=== PATIENT | female | born 1960 | race Caucasian/White ===

== ENCOUNTER → 2016-11-17 | Outpatient (CLI) | payer BC ==
--- NOTE | 2016-11-21 08:44 | MM ---
Reason for exam: screening (asymptomatic). Last mammogram was performed 1 year ago. History: Patient is postmenopausal. Physical Findings: A clinical breast exam by your physician is recommended on an annual basis and results should be correlated with mammographic findings. MG 3D Screening Mammo W/Cad Bilateral CC and MLO view(s) were taken. Prior study comparison: November 12, 2015, bilateral MG 3d screening mammo w/cad. There are scattered fibroglandular densities. No significant changes when compared with prior studies. ASSESSMENT: Benign, BI-RAD 2 RECOMMENDATION: Routine screening mammogram of both breasts in 1 year.
== END | disposition home or self-care (01) ==
LOC: RADMAMWWP 08:52
PROVIDERS: ATTEND Family Medicine
DX: Z12.31 Encounter for screening mammogram for malignant neoplasm of breast (principal)
CPT/HCPCS: 77063; G0202

== ENCOUNTER → 2017-07-11 | Outpatient (CLI) | payer BC | END | disposition home or self-care (01) | LOC: RADECHMAIN 11:50 | PROVIDERS: ATTEND Family Medicine | DX: R00.1 Bradycardia, unspecified (principal); R00.0 Tachycardia, unspecified | CPT/HCPCS: 93225; 93226 ==

== ENCOUNTER → 2017-11-20 | Outpatient (CLI) | payer BC ==
--- NOTE | 2017-11-21 11:48 | MM ---
Reason for exam: screening (asymptomatic). Last mammogram was performed 1 year ago. History: Patient is postmenopausal. Physical Findings: A clinical breast exam by your physician is recommended on an annual basis and results should be correlated with mammographic findings. MG 3D Screening Mammo W/Cad Bilateral CC and MLO view(s) were taken. Prior study comparison: November 17, 2016, bilateral MG 3d screening mammo w/cad. November 12, 2015, bilateral MG 3d screening mammo w/cad. The breast tissue is heterogeneously dense. This may lower the sensitivity of mammography. Focal asymmetry upper outer left breast 6.9cm from nipple. This finding is changed when compared with previous exams. ASSESSMENT: Incomplete: need additional imaging evaluation, BI-RAD 0 RECOMMENDATION: Special view mammogram of the left breast. If lesion persists on supplemental views, image directed ultrasound is recommended. [facility] will attempt to contact patient to return for supplemental views and ultrasound if indicated.
== END | disposition home or self-care (01) ==
LOC: RADMAMWWP 09:01
PROVIDERS: ATTEND Family Medicine
DX: Z12.31 Encounter for screening mammogram for malignant neoplasm of breast (principal)
CPT/HCPCS: 77063; 77067

== ENCOUNTER → 2017-11-22 | Outpatient (CLI) | payer BC ==
--- NOTE | 2017-11-22 08:07 | MM ---
Reason for exam: additional evaluation requested from abnormal screening. Last mammogram was performed less than 1 month ago. History: Patient is postmenopausal. Took hormonal contraceptives beginning at age 22. Physical Findings: Nurse Summary: 1cm nodule in the left breast at 1 o'clock (nurse dw). MG 3D Work Up W/Cad LT Spot compression CC, spot compression MLO, and ML view(s) were taken of the left breast. Prior study comparison: November 20, 2017, bilateral MG 3d screening mammo w/cad. November 17, 2016, bilateral MG 3d screening mammo w/cad. Finding: There is a stable equal density (isodense) mass in the upper outer quadrant of the left breast. These results were verbally communicated with the patient and result sheet given to the patient on 11/22/17. ASSESSMENT: Probably benign, BI-RAD 3 RECOMMENDATION: Follow-up diagnostic mammogram of the left breast in 6 months.
== END | disposition home or self-care (01) ==
LOC: RADMAMWWP 06:50
PROVIDERS: ATTEND Family Medicine
DX: R92.8 Other abnormal and inconclusive findings on diagnostic imaging of breast (principal)
CPT/HCPCS: 77065; G0279

== ENCOUNTER 2017-12-14 12:35 | Emergency (ER) | payer OTHER, BC ==
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
[2017-12-14 13:22] VITALS: RESP 16
[2017-12-14 13:36] LABS: Basophils # (A) 0.1 k/uL (0-0.2); Basophils % (A) 1 %; Eosinophils # (A) 0.3 k/uL (0-0.7); Eosinophils % (A) 3 %; HGB 15.8 gm/dL (11.4-16.0); Lymphocytes # (A) 1.9 k/uL (1.0-4.8); Lymphocytes % (A) 21 %; MCH 28.7 pg (25.0-35.0); MCHC 33.5 g/dL (31.0-37.0); MCV 85.5 fL (80.0-100.0); Mean Platelet Volume 7.2; Monocytes # (A) 0.5 k/uL (0-1.0); Monocytes % (A) 6 %; Neutrophils % (A) 67 %; Platelet Count 257 k/uL (150-450); RDW 12.9 % (11.5-15.5); WBC 8.9 k/uL (3.8-10.6)
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
[2017-12-14 13:47] LABS: Albumin 4.4 g/dL (3.5-5.0); Calcium 9.2 mg/dL (8.4-10.2); Magnesium 1.8 mg/dL (1.6-2.3); Potassium 4.2 mmol/L (3.5-5.1); Total Bilirubin 0.4 mg/dL (0.2-1.3); Total Protein 6.9 g/dL (6.3-8.2)
[2017-12-14 14:00] LABS: Creatine Kinase 54 U/L (30-135)
[2017-12-14 14:14] LABS: Creatine Kinase MB 0.3 ng/mL (0.0-2.4); Troponin I <0.012 ng/mL (0.000-0.034)
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
[2017-12-14 15:15] VITALS: BP 128/87; PULSE 80; TEMP 97.9
== END 2017-12-14 15:13 | disposition home or self-care (01) ==
LOC: EC 12:35
DX: S20.219A Contusion of unspecified front wall of thorax, initial encounter (principal); S60.221A Contusion of right hand, initial encounter; S80.11XA Contusion of right lower leg, initial encounter; E07.9 Disorder of thyroid, unspecified; Z88.0 Allergy status to penicillin; Z79.82 Long term (current) use of aspirin; Z79.899 Other long term (current) drug therapy; V49.40XA Driver injured in collision with unspecified motor vehicles in traffic accident, initial encounter; Y92.410 Unspecified street and highway as the place of occurrence of the external cause; W22.11XA Striking against or struck by driver side automobile airbag, initial encounter
CPT/HCPCS: 36415; 71046; 80053; 82550; 82553; 83735; 84484; 85025; 93005; 99284

== ENCOUNTER → 2018-04-12 | Outpatient (CLI) | payer BC ==
--- NOTE | 2018-04-12 10:55 | MM ---
Reason for exam: clinical finding. Last mammogram was performed 5 months ago. History: Patient is postmenopausal. Took hormonal contraceptives beginning at age 22. Physical Findings: Nurse did not find any significant physical abnormalities on exam. MG 3D Diag Mammo W/Cad LT CC, MLO, and ML view(s) were taken of the left breast. Prior study comparison: November 22, 2017, left breast MG 3d work up w/cad LT. November 20, 2017, bilateral MG 3d screening mammo w/cad. There are scattered fibroglandular densities. Asymmetric breast tissue left upper outer quadrant, stable. There is no discrete abnormality. These results were verbally communicated with the patient and result sheet given to the patient on 04/12/18. ASSESSMENT: Benign, BI-RAD 2 RECOMMENDATION: Return to routine screening mammogram schedule for both breasts. Back on schedule.
== END | disposition home or self-care (01) ==
LOC: RADMAMWWP 07:31
PROVIDERS: ATTEND Family Medicine
DX: R92.8 Other abnormal and inconclusive findings on diagnostic imaging of breast (principal)
CPT/HCPCS: 77061; 77065

== ENCOUNTER → 2018-07-18 | Outpatient (CLI) | payer BC ==
--- NOTE | 2018-07-18 11:36 | BD ---
EXAMINATION TYPE: Axial Bone Density DATE OF EXAM: 07/18/2018 COMPARISON: NONE CLINICAL HISTORY: Osteopenia per order. Height: 5 FT 2 IN Weight: 133 FRAX RISK QUESTIONS: History of Fracture in Adulthood: YES Secondary Osteoporosis: RISK FACTORS HISTORY OF: Active: YES Postmenopausal woman: PART HYST AGE 42 MEDICATIONS: Thyroid Medications: YES Which medication: LEVOTHYROXINE How Long: APROX 25 YRS Additional Medications: PROZAC, METOPROLOL, LEVOTHYROXINE Additional History: EXAM MEASUREMENTS: Bone mineral densitometry was performed using the [employer] System. Bone mineral density as measured about the Lumbar spine is: ----- L1-L4(G/cm2): 1.001 T Score Values are as follows: ----- L2: -1.7 ----- L3: -1.6 ----- L4: -1.4 ----- L1-L4: -1.5 BASELINE Bone mineral density about the R hip (g/cm2): 0.862 Bone mineral density about the L hip (g/cm2): 0.883 T Score values are as follows: -----R Neck: -1.3 -----L Neck: -1.1 -----R Total: -1.0 -----L Total: -0.7 BASELINE IMPRESSION: Osteopenia (T Score between -2.5 and -1) in the low back and both hips is confirmed. There is slightly increased risk of fracture and the patient may be considered for treatment. Re-Screen 2-5 years. NOTE: T-SCORE=SD OF THE YOUNG ADULT MEAN.
== END ==
LOC: RADBDWWP 09:03
DX: M85.851 Other specified disorders of bone density and structure, right thigh (principal); M85.852 Other specified disorders of bone density and structure, left thigh; M85.88 Other specified disorders of bone density and structure, other site
CPT/HCPCS: 77080

== ENCOUNTER → 2018-11-21 | Outpatient (CLI) | payer BC ==
--- NOTE | 2018-11-22 10:28 | MM ---
Reason for exam: screening (asymptomatic). Last mammogram was performed 7 months ago. History: Patient is postmenopausal. Took hormonal contraceptives beginning at age 22. Physical Findings: A clinical breast exam by your physician is recommended on an annual basis and results should be correlated with mammographic findings. MG 3D Screening Mammo W/Cad Bilateral CC and MLO view(s) were taken. Prior study comparison: April 12, 2018, left breast MG 3d diag mammo w/cad LT. November 22, 2017, left breast MG 3d work up w/cad LT. There are scattered fibroglandular densities. Finding: There is an equal density (isodense), partially obscured round mass in the upper outer quadrant, middle position of the left breast. New finding since April 12, 2018 and November 22, 2017. ASSESSMENT: Incomplete: need additional imaging evaluation, BI-RAD 0 RECOMMENDATION: Ultrasound of the left breast. [facility] will attempt to contact patient to return for ultrasound.
== END | disposition home or self-care (01) ==
LOC: RADMAMWWP 06:50
PROVIDERS: ATTEND Family Medicine
DX: Z12.31 Encounter for screening mammogram for malignant neoplasm of breast (principal)
CPT/HCPCS: 77063; 77067

== ENCOUNTER → 2018-11-27 | Outpatient (CLI) | payer BC ==
--- NOTE | 2018-11-27 11:59 | USB ---
Reason for exam: clinical finding. History: Patient is postmenopausal. Took hormonal contraceptives beginning at age 22. Indicated problem(s): palpable abnormality in the left breast. Physical Findings: Nurse Summary: 1cm movable nodule (nurse dw). US Breast Workup Limited LT Left limited breast ultrasound including focal area of concern, retroareolar and axilla demonstrates no cystic or solid lesion seen. Dense tissue focally appears to correlate with the mammographic finding. Spot compression views will ensure no persistent mammographic abnormality. These results were verbally communicated with the patient and result sheet given to the patient on 11/27/18. ASSESSMENT: Incomplete: need additional imaging evaluation, BI-RAD 0 RECOMMENDATION: Follow-up diagnostic mammogram of the left breast. (spot views)
--- NOTE | 2018-11-27 12:03 | MM ---
Reason for exam: additional evaluation requested from abnormal screening. Last mammogram was performed less than 1 month ago. History: Patient is postmenopausal. Took hormonal contraceptives beginning at age 22. MG 3D Work Up W/Cad LT CC and MLO view(s) were taken of the left breast. Prior study comparison: November 21, 2018, bilateral MG 3d screening mammo w/cad. April 12, 2018, left breast MG 3d diag mammo w/cad LT. The breast tissue is heterogeneously dense. This may lower the sensitivity of mammography. There is a 4mm rounded mass on 3D spot view 41/ and MLO /61 corresponding to the palpable. These results were verbally communicated with the patient and result sheet given to the patient on 11/27/18. ASSESSMENT: Suspicious, BI-RAD 4 RECOMMENDATION: Stereotactic core biopsy of the left breast. Called Dr. Vidales with mammographic findings and has scheduled an appointment for the patient for 12/06/[address] Cain. Biopsy scheduled for 12/18/18 at 8:00. PRELIMINARY REPORT CALLED AND FAXED TO DR. CAIN ON 11/27/18.
== END | disposition home or self-care (01) ==
LOC: RADUSWWP 07:43
PROVIDERS: ATTEND Family Medicine
DX: R92.8 Other abnormal and inconclusive findings on diagnostic imaging of breast (principal)
CPT/HCPCS: 77061; 77065

== ENCOUNTER → 2018-12-06 | Outpatient (CLI) | payer BC ==
[2018-12-06 15:54] VITALS: BP 126/80; PULSE 78; RESP 16; TEMP 97.7; BMI 23.8
--- NOTE | 2018-12-06 16:45 | P.GSHP ---
History of Present Illness H&P Date: 12/06/18 Chief Complaint: Abnormal mammogram and ultrasound Mary is a 58-year-old white female who underwent a routine screening mammogram on [id number]. This revealed a round mass in the upper outer quadrant middle position of the left breast. She subsequently underwent [place] [address]. This revealed a 4 mm rounded mass on 3-D corresponding to an area which the nurse was able to feel in that area. The patient herself did not feel anything of concern in the breast. The ultrasound did not show any specific lesions of concern. The patient denies any nipple discharge or skin changes. She has no history of any trauma to her breast. She drinks about 3 cups of coffee/day. She does not drink any tea or soda. She eats a small amount of dark chocolate every day. She does not smoke and is not exposed to secondhand smoke. The patient is postmenopausal, and she does not take any hormones. Family history: mother: oral cancer patient: basal cell cancer Hormonal History: menarche: 14 : , first at 27, breast fed: no menopause: hysterectomy at 47 done at time of bladder suspencion BCP: 10 years horomes: none Past surgical history: 1. Hysterectomy with bladder suspension 2. Tubes in her ears 3. Tonsils and adenoids Past medical history: 1. hypothyroid 2. tachy takes metoprolal Social history: Smoke: Negative alcohol: Occasional Drugs: Negative - Constitutional Constitutional: Denies chills, Denies fever - EENT Eyes: denies blurred vision, denies pain Ears: deny: decreased hearing, tinnitus Ears, nose, mouth and throat: Denies headache, Denies sore throat - Breasts Breasts: bilateral: as per HPI - Cardiovascular Comment: tachy high cholesterol Cardiovascular: Denies chest pain, Denies shortness of breath - Respiratory Respiratory: Denies cough, Denies 7 - Gastrointestinal Gastrointestinal: Denies abdominal pain, Denies diarrhea, Denies nausea, Denies vomiting - Genitourinary (Female) Genitourinary: Denies dysuria, Denies hematuria - Menstruation Menstruation: Reports post hysterectomy - Musculoskeletal Musculoskeletal: Denies myalgias - Integumentary Comment: basal cell cancer - Neurological Neurological: Denies numbness, Denies weakness - Psychiatric Psychiatric: Reports anxiety, Denies depression - Endocrine Endocrine: Denies fatigue, Denies weight change - Hematologic/Lymphatic Comment: Factor V clotting abnormality, clots takes aspirin - Allergic/Immunologic Allergic/Immunologic: Reports seasonal allergies Past Medical History Past Medical History: Hyperlipidemia, Supraventricular Tachycardia (SVT), Thyroid Disorder History of Any Multi-Drug Resistant Organisms: None Reported Past Surgical History: Adenoidectomy, Hysterectomy, Tonsillectomy Past Psychological History: Anxiety Smoking Status: Never smoker Past Alcohol Use History: Occasional Past Drug Use History: None Reported Medications and Allergies Home Medications Medication Instructions Recorded Confirmed Type Aspirin 81 mg PO DAILY 09/15/14 12/06/18 History FLUoxetine HCL [PROzac] 20 mg PO DAILY 09/15/14 12/06/18 History Levothyroxine Sodium [Synthroid] 88 mcg PO DAILY 09/15/14 12/06/18 History Mirtazapine [Remeron] 15 mg PO HS 09/15/14 12/06/18 History Cholecalciferol [Vitamin D3] 1,000 unit PO DAILY 07/03/17 12/06/18 History clonazePAM [KlonoPIN] 0.25 mg PO DAILY PRN 07/03/17 12/06/18 History Ibuprofen 800 mg PO Q6HR PRN #20 tablet 12/14/17 12/06/18 Rx Metoprolol Succinate (ER) [Toprol 25 mg PO DAILY 11/29/18 12/06/18 History XL] Pravastatin Sodium [Pravachol] 30 mg PO HS 11/29/18 12/06/18 History Allergies Allergy/AdvReac Type Severity Reaction Status Date / Time Penicillins Allergy Vomiting Verified 11/29/18 10:58 Surgical - Exam Vital Signs Temp Pulse Resp BP Pulse Ox 97.7 F 78 16 126/80 97 12/06/18 15:50 12/06/18 15:50 12/06/18 15:50 12/06/18 15:50 12/06/18 15:50 BMI 23.8 - General well developed, well nourished, no distress - Eyes normal ocular movement - ENT no hearing loss, no congestion - Neck no masses, trachea midline - Respiratory normal expansion, normal respiratory effort, clear to auscultation - Cardiovascular Rhythm: regular Heart Sounds: normal: S1, S2 - Abdomen Abdomen: soft, non tender, no guarding, no rigid, no rebound - Integumentary no rash, no abnormal pigmentation - Neurologic no disoriented, no combative - Musculoskeletal normal gait, normal posture - Psychiatric oriented to time, oriented to person, oriented to place, speech is normal, memory intact breast exam: Right breast: Multi-positional exam no dominant masses or nodules of concern, fibrocystic change Right axilla: No adenopathy of concern Left breast: Multiple positional exam no dominant masses or nodules of concern Left axilla: No adenopathy of concern Results Mammogram and ultrasound report reviewed Assessment and Plan Assessment: Impression: 1. Mammographic abnormality left breast 2. Fibrocystic breast changes 3. Personal history of basal cell carcinoma the skin 4. Family history of cancer/mother with oral cancer 5. Supraventricular tachycardia 6. High cholesterol 7. Anxiety 8. Factor V clotting abnormality patient on aspirin We discussed the findings on mammogram and ultrasound and the recommendation to undergo a stero tactic core biopsy. The patient understands. We will talk with primary care to determine if she can stop her aspirin prior to the procedure. Plan: 1. Discuss with primary care if patient can stop her aspirin prior to his core biopsy of the left breast 2. Stereotactic core biopsy of the left breast 3. Medical management of medical conditions CC: Dr. Vidales, Laura Richardson
== END ==
LOC: WWCWWP 15:24
PROVIDERS: ATTEND Surgery
DX: Z53.9 Procedure and treatment not carried out, unspecified reason (principal)

== ENCOUNTER → 2018-12-18 | Day surgery (SDC) | payer BC ==
[2018-12-18 07:19] VITALS: RESP 16; BMI 23.8
[2018-12-18 09:05] VITALS: BP 110/71; PULSE 64; TEMP 98.2
--- NOTE | 2018-12-18 09:47 | MM ---
EXAMINATION TYPE: MG stereo VAD BX LT DATE OF EXAM: 12/18/2018 COMPARISON: NONE CLINICAL HISTORY: Left breast 3 mm upper outer quadrant middle depth mass with no sonographic correlate. TECHNIQUE: Stereotactic guided core biopsy of the left breast. FINDINGS: The procedure of stereotactic guided core biopsy was explained to the patient. Benefits, alternatives, and risks were discussed. An informed consent was then obtained. Preprocedural timeout was performed. Preprocedural imaging on the stereotactic images demonstrate 2 adjacent low-density 3 mm and 2 mm masses. The inferior margin of the larger mass was biopsied as below in attempt also sample a portion of the 2 mm mass. The shortness pathway for biopsy was chosen. Shortness pathway was CC from above approach. I performed the localization, then surgeon, Dr. Ramin Gallardo performed the remainder of the procedure. A vacuum assisted biopsy gun was used to obtain multiple core samples. T shaped biopsy marker was placed. The patient tolerated the procedure well without any immediate complication. The patient was kept in the radiology department for short stay after the procedure and then discharged home in stable condition. Post biopsy mammogram shows the biopsy marker to appear in satisfactory position relative to the targeted area of concern on the preprocedure images. IMPRESSION: SUCCESSFUL, UNCOMPLICATED STEREOTACTIC GUIDED CORE BIOPSY OF AREA OF CONCERN IN THE LEFT BREAST, FULL PATHOLOGY RESULTS TO FOLLOW. LOW INDEX OF SUSPICION AT THE TIME OF BIOPSY. Pathology Results: Benign LEFT BREAST, STEREOTACTIC CORE BIOPSY: Benign breast with fibrocystic changes including fibrosis and small cysts. Recommendation Follow up mammogram of the left breast in 6 months. [facility]
--- NOTE | 2018-12-18 11:50 | P.OP ---
Date of Procedure: 12/18/18 Preoperative Diagnosis: Mammographic abnormality left breast Postoperative Diagnosis: same Procedure(s) Performed: Left breast stereotactic core biopsy Anesthesia: local Surgeon: Bernadette Cain Estimated Blood Loss (ml): 0 Pathology: other (Breast tissue) Condition: stable Disposition: same day Indications for Procedure: 4 mm rounded density in 3 spot view corresponding to probable change in the left breast in the midportion of the breast Operative Findings: Dense breast tissue Description of Procedure: The patient is a 58-year-old white female who on a mammogram was noted to have an area of increased nodular density in the left breast. It was recommended she undergo stereotactic core biopsy. This and benefits of the procedure were discussed with the patient and she wished to proceed. The patient was taken to the stereotactic core and positioned on the lower had table. A CC from above approach was utilized to access the lesion. A compressed air pile driver operator film was obtained and the lesion was identified. The breast was prepped using Betadine. 20 mL of 1% lidocaine was used to anesthetize the area of concern. A 90 vacuum-assisted core rotating biopsy needle was driven to the correct coordinates after the lesion had been targeted. A prefire film was obtained and the needle was noted to be in the correct location. This was fired and post-fire film confirmed that the specimen was not radiographs secondary to the fact we were not doing this for microcalcifications. A secure marked top had clip was left in place. Radiograph confirmed this was in the correct location. The patient tolerated the procedure with no complications. The patient will follow-up Dr. Faustin next week. The specimen was sent to pathology.
== END | disposition home or self-care (01) ==
LOC: RADMAMWWP 07:05
PROVIDERS: ATTEND Surgery
DX: N60.32 Fibrosclerosis of left breast (principal); N60.02 Solitary cyst of left breast
CPT/HCPCS: 88305; 19081; A4648; J2001

== ENCOUNTER → 2018-12-28 | Outpatient (CLI) | payer BC ==
[2018-12-28 10:36] VITALS: BP 109/71; PULSE 75; RESP 16; TEMP 98.1; BMI 23.8
--- NOTE | 2018-12-28 10:45 | P.PN ---
Subjective Progress Note Date: 12/28/18 Mary is a 58-year-old white female status post left breast stereotactic core biopsy and 520 119. She is not getting any complaints postprocedure. Pathology revealed benign breast with fibrocystic changes including fibrosis and small cyst. I reviewed the radiographs with radiology to assure that we biopsied the correct area. They do feel that we did sample the area of concern. I discussed this with the patient. Objective - Vital Signs Vital signs: Vital Signs Temp 98.1 F 12/28/18 10:30 Pulse 75 12/28/18 10:30 Resp 16 12/28/18 10:30 BP 109/71 12/28/18 10:30 Pulse Ox 97 12/28/18 10:30 Intake & Output 12/27/18 12/28/18 12/28/18 18:59 06:59 18:59 Weight 58.967 kg - Constitutional General appearance: Present: average body habitus - EENT Eyes: Present: EOMI ENT: Present: hearing grossly normal - Respiratory Respiratory: bilateral: CTA - Cardiovascular Rhythm: regular Heart sounds: normal: S1, S2 - Integumentary Integumentary: Present: normal turgor - Musculoskeletal Musculoskeletal: Present: gait normal - Psychiatric Psychiatric: Present: A&O x's 3, appropriate affect - Additional findings Additional findings: Left breast site of biopsy clean and dry no evidence of any ecchymosis or hematoma or infection Assessment and Plan Assessment: Impression: 1. Patient status post left breast retracted core biopsy results benign Plan: 1. Follow-up with Dr. Faustin in 6 months with repeat left breast diagnostic mammogram 2. Patient has any concerns she can follow sooner CC: Dr. Vidales, CC: Laura Richardson at [facility]
== END ==
LOC: WWCWWP 10:17
PROVIDERS: ATTEND Surgery
DX: Z53.9 Procedure and treatment not carried out, unspecified reason (principal)

== ENCOUNTER → 2019-03-29 | Outpatient (CLI) | payer BC ==
[2019-03-29 14:40] LABS: Appearance,Urine Clear (Clear); Bilirubin,Urine Negative (Negative); Blood,Urine Negative (Negative); Color,Urine Light Yellow; Glucose,Urine (UA) Negative (Negative); Ketones,Urine Negative (Negative); Leukocyte Esterase,Urine Trace (Negative); Mucus,Urine Rare /hpf; Nitrite,Urine Negative (Negative); PH, Urine 5.5 (5.0-8.0); Protein,Urine Negative (Negative); RBC,Urine <1 /hpf (0-5); Specific Gravity,Urine 1.008 (1.001-1.035); Squamous Epithelial Cell,Urine <1 /hpf (0-4); Urobilinogen,Urine <2.0 mg/dL (<2.0); WBC,Urine <1 /hpf (0-5)
--- NOTE | 2019-03-29 17:25 | US ---
EXAMINATION TYPE: US kidneys/renal and bladder DATE OF EXAM: 03/29/2019 COMPARISON: NONE CLINICAL HISTORY: 58-year-old female R31.9 Hematuria, unspecified,N18.9. No pain, abnormal labs TECHNIQUE: Multiple sonographic images of the kidneys and bladder are obtained. FINDINGS: EXAM MEASUREMENTS: Right Kidney: 9.5 x 4.0 x 4.2 cm Left Kidney: 9.5 x 4.1 x 4.2 cm No hydronephrosis on either side. Bladder: Underdistention limits its evaluation. Bilateral Jets not seen IMPRESSION: No hydronephrosis. Under distention of the bladder limits its evaluation.
== END | disposition home or self-care (01) ==
LOC: RADUSWWP 12:39
PROVIDERS: ATTEND Urology
DX: N18.9 Chronic kidney disease, unspecified (principal); R31.29 Other microscopic hematuria
CPT/HCPCS: 76770; 81001; 82565; 84520

== ENCOUNTER → 2019-06-04 | Outpatient (CLI) | payer BC ==
--- NOTE | 2019-06-04 13:25 | MM ---
Reason for exam: follow-up at short interval from prior study. Last mammogram was performed 6 months ago. History: Patient is postmenopausal and history of other cancer. Benign MG stereo VAD BX LT of the left breast, December 18, 2018. Took hormonal contraceptives beginning at age 22. Physical Findings: Nurse did not find any significant physical abnormalities on exam. MG 3D Diag Mammo W/Cad LT CC and MLO view(s) were taken of the left breast. Prior study comparison: November 27, 2018, left breast MG 3d work up w/cad LT. November 21, 2018, bilateral MG 3d screening mammo w/cad. There are scattered fibroglandular densities. Previous mammotome biopsy in the left breast. There is no discrete abnormality. These results were verbally communicated with the patient and result sheet given to the patient on 06/04/19. ASSESSMENT: Benign, BI-RAD 2 RECOMMENDATION: Return to routine screening mammogram schedule for both breasts.
== END | disposition home or self-care (01) ==
LOC: RADMAMWWP 12:49
PROVIDERS: ATTEND Surgery
DX: R92.8 Other abnormal and inconclusive findings on diagnostic imaging of breast (principal)
CPT/HCPCS: 77061; 77065

== ENCOUNTER → 2019-07-12 | Outpatient (CLI) | payer BC ==
[2019-07-12 15:18] VITALS: BP 116/77; PULSE 60; RESP 18; TEMP 97.6
--- NOTE | 2019-07-12 15:29 | P.PN ---
Subjective Progress Note Date: 07/12/19 Principal diagnosis: Mary is a 58 year old white female status post a stero biopsy of the left breast on 12-18-18. ALLERGY revealed benign breast with fibrocystic changes including fibrosis and small cysts. She had a repeat left breast mammogram for 6 month follow-up performed on. This was felt to be benign BIRADS 2. Routine screening of both breast in 6 months recommended. The patient does not complain of anything in her breast at this time. Patient is not noticing any masses lumps or nodules in the breast. She is not complaining of any pain in her breasts. No history of any recent trauma or infection in the breast. The patient has decreased her caffeine intake from 3 cups of coffee per day however she is status post several drinks some. She eats dark chocolate every day. She does not smoke and is not exposed to secondhand smoke. Family History: mother; oral cancer patient: basal cell cancer, left arm surgical history: 1. Hysterectomy with bladder suspension 2. Tubes in ears 2. Tonsils and adenoids Medical history: 1. Hypothyroid 2. Tachycardia and takes metoprolol Social History: smoke: none alcohol: occasional drugs: none ROS: constitutional: none HEENT: none heart: tachy resp: none GI: none :post hysterectomy, done willllh a bladder suspension Skeletal: Negative Psychiatric: Negative Neurologic: Negative Hematologic: Factor V clotting abnormality, takes aspirin Allergies: PCN Objective - Vital Signs Vital signs: Intake & Output 07/11/19 07/12/19 07/12/19 18:59 06:59 18:59 Weight 59.874 kg - Exam BMI 24.1 - Constitutional General appearance: Present: average body habitus - EENT Eyes: Present: EOMI ENT: Present: hearing grossly normal - Neck Neck: Present: normal ROM - Respiratory Respiratory: bilateral: CTA - Cardiovascular Rhythm: regular Heart sounds: normal: S1, S2 - Gastrointestinal General gastrointestinal: Present: normal bowel sounds, soft - Integumentary Integumentary: Present: normal turgor - Musculoskeletal Musculoskeletal: Present: gait normal - Psychiatric Psychiatric: Present: A&O x's 3, appropriate affect, intact judgment & insight - Additional findings Additional findings: examination: Right breast: Multiple positional exam no dominant masses or nodules of concern, fibrocystic changes Right axilla: No adenopathy of concern Left breast: Multiple positional exam fibrocystic changes no dominant mass or nodules of concern Left axilla: No adenopathy of concern Assessment and Plan Assessment: Impression: 1. Repeat left breast mammogram 6 months from stereotactic core biopsy benign BIRADS 2 2. Fibrocystic breast changes 3. Factor V clotting abnormality Plan: 1. Bilateral mammogram in 6 months with physician exam at that time Abdomen discussed this with the patient she is going to have her primary care physician with a mammogram and will follow up with him. She has any questions or abnormalities were more than happy to see her again. Cc: Dr. Castro Encounter 15 minutes, > 50% planning and counselling Time with Patient: Less than 30
== END | disposition home or self-care (01) ==
LOC: WWCWWP 13:54
PROVIDERS: ATTEND Surgery
DX: Z53.9 Procedure and treatment not carried out, unspecified reason (principal)

== ENCOUNTER → 2019-07-12 | Outpatient (CLI) | payer BC ==
--- NOTE | 2019-07-12 15:21 | BD ---
EXAMINATION TYPE: Axial Bone Density DATE OF EXAM: 07/12/2019 COMPARISON: NONE CLINICAL HISTORY: M 81.0 Height: 61.5 IN Weight: 133 LBS FRAX RISK QUESTIONS: History of Fracture in Adulthood: TOES AGE 52 Secondary Osteoporosis: 3. Menopause before 45: PARTIAL HYST AGE 47 RISK FACTORS HISTORY OF: Active: YES Diet low in dairy products/other sources of calcium: YES Postmenopausal woman: PART HYST AGE 47 Take estrogen and/or progesterone medications: NOT NOW How long: TOOK CONTROL FOR 15 YEARS MEDICATIONS: Thyroid Medications: YES Which medication: Levothyroxine How Lon+ YEARS Osteoporosis Medications: NOT NOW Which medication: Fosamax How Long: TOOK FOR 2 YEARS IN HER 40's Additional Medications: CALCIUM, VIT D, LEVOTHYROXINE, PROZAC, METOPROLOL, CHOLESTEROL MEDS, MIRTAZAP RINE, EXAM MEASUREMENTS: Bone mineral densitometry was performed using the [employer] System. Bone mineral density as measured about the Lumbar spine is: ----- L1-L4(G/cm2): 0.996 T Score Values are as follows: ----- L2: -1.6 ----- L3: -1.6 ----- L4: -1.2 ----- L1-L4: -1.5 Bone mineral density BASELINE Bone mineral density about the R hip (g/cm2): 0.851 Bone mineral density about the L hip (g/cm2): 0.885 T Score values are as follows: -----R Neck: -1.3 -----L Neck: -1.1 -----R Total: -1.1 -----L Total: -0.7 Bone mineral density BASELINE IMPRESSION: Osteopenia (T Score between -2.5 and -1). There is slightly increased risk of fracture and the patient may be considered for treatment. Re-Screen 2-5 years. NOTE: T-SCORE=SD OF THE YOUNG ADULT MEAN.
== END | disposition home or self-care (01) ==
LOC: RADBDWWP 13:50
PROVIDERS: ATTEND Family Medicine
DX: M85.89 Other specified disorders of bone density and structure, multiple sites (principal)
CPT/HCPCS: 77080

== ENCOUNTER → 2020-01-24 | Outpatient (CLI) | payer BC ==
--- NOTE | 2020-01-27 10:05 | MM ---
Reason for exam: screening (asymptomatic). Last mammogram was performed 8 months ago. History: Patient is postmenopausal and history of other cancer. Benign MG stereo VAD BX LT of the left breast, December 18, 2018. Took hormonal contraceptives beginning at age 22. Physical Findings: A clinical breast exam by your physician is recommended on an annual basis and results should be correlated with mammographic findings. MG 3D Screening Mammo W/Cad Bilateral CC and MLO view(s) were taken. Prior study comparison: June 04, 2019, left breast MG 3d diag mammo w/cad LT. November 27, 2018, left breast MG 3d work up w/cad LT. November 20, 2017, bilateral MG 3d screening mammo w/cad. November 17, 2016, bilateral MG 3d screening mammo w/cad. There are scattered fibroglandular densities. No significant changes when compared with prior studies. ASSESSMENT: Benign, BI-RAD 2 RECOMMENDATION: Routine screening mammogram of both breasts in 1 year.
== END | disposition home or self-care (01) ==
LOC: RADMAMWWP 08:07
PROVIDERS: ATTEND Family Medicine
DX: Z12.31 Encounter for screening mammogram for malignant neoplasm of breast (principal)
CPT/HCPCS: 77063; 77067

== ENCOUNTER → 2021-01-29 | Outpatient (CLI) | payer BC ==
--- NOTE | 2021-02-03 14:35 | MM ---
Reason for exam: screening (asymptomatic). Last mammogram was performed 1 year ago. History: Patient is postmenopausal and history of other cancer. Benign MG stereo VAD BX LT of the left breast, December 18, 2018. Took hormonal contraceptives beginning at age 22. Physical Findings: A clinical breast exam by your physician is recommended on an annual basis and results should be correlated with mammographic findings. MG 3D Screening Mammo W/Cad Bilateral CC and MLO view(s) were taken. Prior study comparison: January 24, 2020, bilateral MG 3d screening mammo w/cad. November 21, 2018, bilateral MG 3d screening mammo w/cad. November 20, 2017, bilateral MG 3d screening mammo w/cad. November 17, 2016, bilateral MG 3d screening mammo w/cad. There are scattered fibroglandular densities. Previous mammotome biopsy in the left breast. No significant changes when compared with prior studies. ASSESSMENT: Benign, BI-RAD 2 RECOMMENDATION: Routine screening mammogram of both breasts in 1 year.
== END | disposition home or self-care (01) ==
LOC: RADMAMWWP 08:33
PROVIDERS: ATTEND Family Medicine
DX: Z12.31 Encounter for screening mammogram for malignant neoplasm of breast (principal); Z78.0 Asymptomatic menopausal state
CPT/HCPCS: 77063; 77067

== ENCOUNTER → 2021-07-15 | Outpatient (CLI) | payer BC ==
--- NOTE | 2021-07-15 20:21 | BD ---
EXAMINATION TYPE: Axial Bone Density DATE OF EXAM: 07/15/2021 COMPARISON: 07.12.2019 CLINICAL HISTORY: 61 YR OLD FEMALE.....ICD-10 CODE: Z78.0 MENOPAUSAL Height: 62 Weight: 133 FRAX RISK QUESTIONS: History of Fracture in Adulthood: YES RISK FACTORS HISTORY OF: HX OF FRACTURES TO SEVERAL TOES AN ADULT Postmenopausal woman: YES, AT AGE 42 FOR HYST, UNSURE OF MENOPAUSE....50s Take estrogen and/or progesterone medications: YES, FOSAMAX, FOR 2 YRS IN THE PAST, NONE NOW Hyperparathyroidism: NO Adrenal Insufficiency: NO MEDICATIONS: Thyroid Medications: YES, SYNTHROID FOR ABOUT 20 YRS Additional Medications: PROZAC, AND REMERON, METOPROLOL FOR HEART LAST MONTH, NOT NOW, CHOLESTEROL ME DS PRAVASTATIN, CALCIUM AND VIT D, Additional History: ANXIETY, HEART, CHOLESTEROL, THYROID, EXAM MEASUREMENTS: Bone mineral densitometry was performed using the [employer] System. Bone mineral density as measured about the Lumbar spine is: ----- L1-L4(G/cm2): 0.992 T Score Values are as follows: ----- L1: -1.9 ----- L2: -1.4 ----- L3: -1.8 ----- L4: -1.3 ----- L1-L4: -1.6 Bone mineral density has: Decreased -0.7% since study of: 07.12.2019 Bone mineral density about the R hip (g/cm2): 0.863 Bone mineral density about the L hip (g/cm2): 0.905 T Score values are as follows: -----R Neck: -1.4 -----L Neck: -1.4 -----R Total: -1.1 -----L Total: -0.8 Bone mineral density has: Decreased -0.6% since study of: 07.12.2019 FRAX%s: THERE IS A 13.2% CHANCE FOR A MAJOR OSTEOPOROTIC FX AND A 1.1% FOR HIP.....PROBABILITY FO R FX IN 10 YRS TIME IMPRESSION: Osteopenia (T Score between -2.5 and -1). There is slightly increased risk of fracture and the patient may be considered for treatment. Re-Screen 2-5 years. NOTE: T-SCORE=SD OF THE YOUNG ADULT MEAN.
== END | disposition home or self-care (01) ==
LOC: RADBDWWP 08:34
PROVIDERS: ATTEND Family Medicine
DX: Z12.31 Encounter for screening mammogram for malignant neoplasm of breast (principal); Z78.0 Asymptomatic menopausal state
CPT/HCPCS: 77080

== ENCOUNTER 2021-10-01 08:27 | Day surgery (SDC) | payer BC ==
[2021-09-29 15:48] VITALS: BMI 23.8
[2021-10-01] MEDS ORDERED: LACTATED RINGERS 1,000 ML IV SCH (08:38)
[2021-10-01] MEDS ORDERED: MIDAZOLAM 2 MG/2 ML VIAL ONE (09:01)
[2021-10-01] MEDS ORDERED: fentaNYL (PF) 50 MCG/ML 2 ML AMP ONE (09:01)
[2021-10-01] MEDS ORDERED: PROPOFOL 10 MG/ML 20 ML VIAL IV ONE (09:01)
[2021-10-01 09:03] VITALS: RESP 16; TEMP 97
--- NOTE | 2021-10-01 09:15 | P.PCN ---
Date of Procedure: 10/01/21 Procedure(s) Performed: BRIEF HISTORY: Patient is a 61-year-old pleasant female scheduled for an elective colonoscopy as a part of screening for colorectal neoplasia. PROCEDURE PERFORMED: Colonoscopy. PREOPERATIVE DIAGNOSIS: Screening for colon cancer. IV sedation per Anesthesia. PROCEDURE: After informed consent was obtained, the patient, was brought into the endoscopy unit. IV sedation was administered by Anesthesia under continuous monitoring. Digital rectal examination was normal. Initially the Olympus CF-160 flexible video colonoscope was then inserted in the rectum, gradually advanced into the cecum without any difficulty. Careful examination was performed as the scope was gradually being withdrawn. Ileocecal valve and the appendiceal orifice were visualized and appeared normal. Prep was excellent. Mucosa of the cecum, ascending colon, transverse colon, descending colon, sigmoid colon, and rectum appeared normal. Retroflexion was performed in the rectum and no lesions were seen. The patient tolerated the procedure well. IMPRESSION: Normal-appearing colon from rectum to cecum with no evidence of colorectal neoplasia . RECOMMENDATIONS: Findings of this examination were discussed with the patient as well as a family. She was advised to have a repeat screening colonoscopy in 10 years..
[2021-10-01 09:37] VITALS: BP 104/70; PULSE 81
== END 2021-10-01 09:47 | disposition home or self-care (01) ==
LOC: ORWHC2ENDO 08:27
PROVIDERS: ATTEND Internal Medicine Gastroenterology
DX: Z12.11 Encounter for screening for malignant neoplasm of colon (principal)
CPT/HCPCS: 45378; J2250; J3010; J2704

== ENCOUNTER → 2022-02-01 | Outpatient (CLI) | payer BC ==
--- NOTE | 2022-02-02 08:36 | MM ---
Reason for Exam: Screening (asymptomatic). Last screening mammogram was performed 12 month(s) ago. Patient History: Menarche at age 14. First Full-Term at age 27. Hysterectomy at age 46. Postmenopausal. Other cancer. Hormonal Contraceptives, from age 22 until age 37. 12/18/2018, Benign Core Biopsy on the left side. Risk Values: Karin 5 year model risk: 1.8%. NCI Lifetime model risk: 9.8%. Prior Study Comparison: 06/04/2019 Left Diagnostic Mammogram, [facility]. 01/24/2020 Bilateral Screening Mammogram, [facility]. 01/29/2021 Bilateral Screening Mammogram, [facility]. Tissue Density: There are scattered fibroglandular densities. Findings: Analyzed By CAD. Biopsy clip left breast middle depth upper aspect redemonstrated. Benign-appearing bilateral axillary lymph nodes redemonstrated. There is no suspicious group of microcalcifications or new suspicious mass in either breast. Overall Assessment: Benign, BI-RAD 2 Management: Screening Mammogram of both breasts in 1 year. A clinical breast exam by your physician is recommended on an annual basis and results should be correlated with mammographic findings. Electronically signed and approved by: Berlin Dietz M.D.
== END | disposition home or self-care (01) ==
LOC: RADMAMWWP 09:18
PROVIDERS: ATTEND Family Medicine
DX: Z12.31 Encounter for screening mammogram for malignant neoplasm of breast (principal)
CPT/HCPCS: 77063; 77067

== ENCOUNTER 2022-08-31 08:49 | Observation (INO) | payer BC ==
[2022-08-31] MEDS ORDERED: MECLIZINE 12.5 MG TAB PO STA (09:18)
[2022-08-31] MEDS ORDERED: SODIUM CHLORIDE 0.9% 1,000 ML IV STA (09:18)
--- NOTE | 2022-08-31 09:26 | ED ---
General Adult HPI - General Chief complaint: Dizziness Stated complaint: sob, dizziness Time Seen by Provider: 08/31/22 09:06 Source: patient, RN notes reviewed, old records reviewed Mode of arrival: ambulatory Limitations: no limitations - History of Present Illness Initial comments: Patient is a 62-year-old female with past medical history remarkable for tachycardia on metoprolol, thyroid disorder, factor V disease who presents emergency Department with sudden onset of dizziness/lightheadedness that began earlier this morning. States she woke up and felt "off." Was complaining of dizziness, lightheadedness sensation that is improved at this time. States it is a room spinning sensation when laying down flat and also a lightheadedness sensation with standing up. Denies any chest pain, headache, shortness of breath, nausea, vomiting. Denies any leg swelling. Denies any numbness or weakness. Denies any other acute complaints at this time. Denies any trauma. Recently flew in an airplane. No recent upper respiratory infections. No h istory of vertigo. No history of strokes. Is not on blood thinners. Patient is concerned with a history of factor V disease that she may have a blood clot. Denies any respiratory complaints or cardiac complaints. - Related Data Home Medications Medication Instructions Recorded Confirmed FLUoxetine HCL [PROzac] 20 mg PO QAM 09/15/14 09/29/21 Mirtazapine [Remeron] 15 mg PO HS 09/15/14 09/29/21 clonazePAM [KlonoPIN] 0.25 mg PO HS PRN 07/03/17 09/29/21 Metoprolol Succinate (ER) [Toprol 25 mg PO QAM 11/29/18 09/29/21 XL] Pravastatin Sodium [Pravachol] 40 mg PO HS 11/29/18 09/29/21 Levothyroxine Sodium [Levoxyl] 88 mcg PO QAM 09/29/21 09/29/21 Allergies Allergy/AdvReac Type Severity Reaction Status Date / Time Penicillins Allergy Vomiting Verified 10/01/21 08:45 Review of Systems ROS Statement: Those systems with pertinent positive or pertinent negative responses have been documented in the HPI. Review of Systems: CONST: Denies fever EYES: Denies blurry vision ENT: Denies nasal congestion C/V: Denies Chest pain RESP: Denies shortness of breath GI: Denies abdominal pain : Denies dysuria SKIN: Denies rash. MSK: Denies joint pain. NEURO: Denies headache ROS Other: All systems not noted in ROS Statement are negative. Past Medical History Past Medical History: Hyperlipidemia, Supraventricular Tachycardia (SVT), Thyroid Disorder Additional Past Medical History / Comment(s): FACTOR V History of Any Multi-Drug Resistant Organisms: None Reported Past Surgical History: Adenoidectomy, Hysterectomy, Tonsillectomy Past Anesthesia/Blood Transfusion Reactions: No Reported Reaction Additional Past Anesthesia/Blood Transfusion Reaction / Comment(s): Mom PONV. Past Psychological History: Anxiety Smoking Status: Never smoker Past Alcohol Use History: Occasional Past Drug Use History: None Reported - Past Family History Mother Family Medical History: Cancer Additional Family Medical History / Comment(s): Oral cancer. Father Family Medical History: Pulmonary Embolus Additional Family Medical History / Comment(s): Factor 5. General Exam - General Exam Comments Initial Comments: General: Appears in no acute distress. HEAD: Normal with no signs of head trauma. EYES: PERRLA, EOMI, conjunctiva normal, no discharge. Pupils are 3 mm and equal bilaterally. ENT: Hearing grossly intact, normal oropharynx. RESPIRATORY: Clear breath sounds bilaterally. No wheezes, rales, or rhonchi. C/V: Regular rate and rhythm. S1 and S2 auscultated, no edema, peripheral pulses 2+ and intact throughout ABD: Abd is soft, nontender, nondistended EXT: Normal range of motion, no obvious deformity SKIN: No rashes or lesions observed on exposed skin. NEURO: Alert and oriented x 4. Cranial nerves II-XII intact. No focal sensory or strength deficits. Cerebellar function intact and within normal limits as evident by normal finger to nose testing, [id number] testing. Absence of dysdiadochokinesia. Romberg negative. Ambulates without difficulty. Negative nystagmus. NIH of 0. GCS is 15. Limitations: no limitations Course Vital Signs 08/31/22 08/31/22 08/31/22 08:50 10:29 10:40 Temperature 97.6 F Pulse Rate 100 93 Respiratory 18 18 18 Rate Blood Pressure 134/80 118/73 Blood Pressure 119/83 [Left Arm Sitting] Blood Pressure 119/72 [Left Arm Standing] Blood Pressure 112/67 [Left Arm Supine] O2 Sat by Pulse 98 98 98 Oximetry Medical Decision Making - Medical Decision Making Based on the patient's presentation and physical exam, I'm concerned for possible vertigo versus lightheadedness sensation for the patient. Patient is concerned regarding a blood clot would like to be screened with a blood test. I did recommend CT brain as well as CT angiogram of the brain to rule out possible central cause for her vertigo. Due to is waiting for the d-dimer to evaluate if she requires CT angiogram of the chest to evaluate for PE, imaging will be delayed until labs return. We will obtain a screening chest x-ray in the meantime as well as EKG. Patient is asymptomatic at this time. She will receive a 1 L fluid bolus as well as by mouth meclizine. She was in agreement. Vital signs within acceptable limits. Exam is unremarkable. Patient's laboratory studies were remarkable for a d-dimer within acceptable limits, undetectable troponin, as well as laboratory studies are otherwise within acceptable limits including negative Covid, flu, RSV swabs. Chest x-ray shows no acute cardio primary process. CT imaging of the brain shows no acute intracranial process. CT angiogram of the neck and head reveals no acute evid ence of stenosis or blockage. Orthostatic vital signs are within acceptable limits. On reevaluation, patient still complaining of symptoms. She states she has not been the mostly when she stands up. She describes it as a room spinning/lightheadedness sensation. She has never experienced this before. Meclizine does not seem to have improved her symptoms. I did discuss with her that as she is still symptomatic, with the negative workup thus far, the next step would be to have neurology evaluate her. I discussed she is likely experiencing peripheral causes of vertigo as it does seem to be dependent on position, however due to her persistent symptoms despite treatment she will be admitted to the hospital for neurology evaluation. Since she is still symptomatic especially with ambulating, I do believe it is reasonable to admit her to observation for further management and for neuro consult. She was in agreement this plan. I spoke with the admitting physician, Dr. Brito who accepted the patient. I also consulted Dr. Chu of neurology to evaluate the patient. Was pt. sent in by a medical professional or institution (, PA, 3RD MATE, urgent care, hospital, or fpc...) When possible be specific @ -No Did you speak to anyone other than the patient for history (EMS, parent, family, police, friend...)? What history was obtained from this source @ -Yes, patient's to aid in the history taking. Did you review nursing and triage notes (agree or disagree)? Why? @ -I reviewed and agree with nursing and triage notes,Except the patient denies shortness of breath to me. Only dizziness sensation. Were old charts reviewed (outside hosp., previous admission, EMS record, old EKG, old radiological studies, urgent care reports/EKG's, fpc records)? Report findings @ -He has, old charts and EKGs were reviewed, particularly from November 2017 and June 2017. Differential Diagnosis (chest pain, altered mental status, abdominal pain women, abdominal pain men, vaginal bleeding, weakness, fever, dyspnea, syncope, headache, dizziness, GI bleed, back pain, seizure, CVA, palpatations, mental health)? @ -Differential Dizziness: Benign paroxysmal positional Vertigo, Menieres disease, otitis media, acoustic neuroma, vertebrobasilar insufficiency, cerebellar stroke, encephalitis, hypovolemic, arrhythmia, coronary artery syndrome, anemia, this is not meant to be an all-inclusive list EKG interpreted by me (3pts min.). @ -As above X-rays interpreted by me (1pt min.). @ -Chest x-ray revealed no acute cardio pulmonary process. CT interpreted by me (1pt min.). @ -CT brain revealed no acute intracranial process that is obvious. No hemorrhage. CT angiogram of the head and neck reveals an old obvious stenosis, acute process to explain the patient's symptoms. U/S interpreted by me (1pt. min.). @ -None done What testing was considered but not performed or refused? (CT, X-rays, U/S, labs)? Why? @ -None What meds were considered but not given or refused? Why? @ -None Did you discuss the management of the patient with other professionals (professionals i.e. , PA, 3RD MATE, lab, RT, psych nurse, social sciences lecturer, new car salesperson, teacher, chemical instrumentation officer, supervisor case loading)? Give summary @ -Dr. Brito the accepting physician who accepted the admission. Was smoking cessation discussed for >3mins.? @ -No Was critical care preformed (if so, how long)? @ -No Were there social determinants of health that impacted care today? How? (Homelessness, low income, unemployed, alcoholism, drug addiction, transportation, low edu. Level, literacy, decrease access to med. care, group home, rehab)? @ -No Was there de-escalation of care discussed even if they declined (Discuss DNR or withdrawal of care, Hospice)? DNR status @ -No What co-morbidities impacted this encounter? (DM, HTN, Smoking, COPD, CAD, Cancer, CVA, ARF, Chemo, Hep., AIDS, mental health diagnosis, sleep apnea, morbid obesity)? @ -None Was patient admitted / discharged? Hospital course, mention meds given and route, prescriptions, significant lab abnormalities, going to OR and other pertinent info. @ -Admitted to observation. See above for emergency Department course. Undiagnosed new problem with uncertain prognosis? @ -No Drug Therapy requiring intensive monitoring for toxicity (Heparin, Nitro, Insulin, Cardizem)? @ -No Were any procedures done? @ -No Diagnosis/symptom? @ -Dizziness, suspect peripheral vertigo Acute, or Chronic, or Acute on Chronic? @ -Acute Uncomplicated (without systemic symptoms) or Complicated (systemic symptoms)? @ -Complicated Side effects of treatment? @ -No Exacerbation, Progression, or Severe Exacerbation? @ -No Poses a threat to life or bodily function? How? (Chest pain, [place], [place], pneumonia, PE, COPD, DKA, ARF, appy, cholecystitis, CVA, Diverticulitis, Homicidal, Suic idal, threat to staff... and all critical care pts) @ -No - Lab Data Result diagrams: 08/31/22 09:22 08/31/22 09:22 Lab Results 08/31/22 08/31/22 08/31/22 Range/Units 09:22 09:22 09:22 WBC 8.2 (3.8-10.6) k/uL RBC 5.01 (3.80-5.40) m/uL Hgb 15.0 (11.4-16.0) gm/dL Hct 44.6 (34.0-46.0) % MCV 89.0 (80.0-100.0) fL MCH 30.0 (25.0-35.0) pg MCHC 33.7 (31.0-37.0) g/dL RDW 12.9 (11.5-15.5) % Plt Count 189 (150-450) k/uL MPV 7.9 Neutrophils % 71 % Lymphocytes % 17 % Monocytes % 5 % Eosinophils % 4 % Basophils % 1 % Neutrophils # 5.8 (1.3-7.7) k/uL Lymphocytes # 1.4 (1.0-4.8) k/uL Monocytes # 0.4 (0-1.0) k/uL Eosinophils # 0.3 (0-0.7) k/uL Basophils # 0.1 (0-0.2) k/uL PT 9.7 (9.0-12.0) sec INR 0.9 (<1.2) APTT 23.9 (22.0-30.0) sec D-Dimer 0.43 (<0.60) mg/L FEU Sodium (137-145) mmol/L Potassium (3.5-5.1) mmol/L Chloride (98-107) mmol/L Carbon Dioxide (22-30) mmol/L Anion Gap mmol/L BUN (7-17) mg/dL Creatinine (0.52-1.04) mg/dL Est GFR (CKD-EPI)AfAm (>60 ml/min/1.73 sqM) Est GFR (CKD-EPI)NonAf (>60 ml/min/1.73 sqM) Glucose (74-99) mg/dL Calcium (8.4-10.2) mg/dL Magnesium (1.6-2.3) mg/dL Total Bilirubin (0.2-1.3) mg/dL AST (14-36) U/L ALT (4-34) U/L Alkaline Phosphatase (38-126) U/L Troponin I (0.000-0.034) ng/mL Total Protein (6.3-8.2) g/dL Albumin (3.5-5.0) g/dL Urine Color Yellow Urine Appearance Clear (Clear) Urine pH 5.5 (5.0-8.0) Ur Specific [place] 1.019 (1.001-1.035) Urine Protein Negative (Negative) Urine Glucose (UA) Negative (Negative) Urine Ketones Negative (Negative) Urine Blood Negative (Negative) Urine Nitrite Negative (Negative) Urine Bilirubin Negative (Negative) Urine Urobilinogen <2.0 (<2.0) mg/dL Ur Leukocyte Esterase Large H (Negative) Urine RBC 2 (0-5) /hpf Urine WBC 6 H (0-5) /hpf Ur Squamous Epith Cells 1 (0-4) /hpf Urine Mucus Rare H (None) /hpf Influenza Type A (PCR) (Not Detectd) Influenza Type B (PCR) (Not Detectd) RSV (PCR) (Not Detectd) SARS-CoV-2 (PCR) (Not Detectd) 08/31/22 08/31/22 08/31/22 Range/Units 09:22 09:22 09:22 WBC (3.8-10.6) k/uL RBC (3.80-5.40) m/uL Hgb (11.4-16.0) gm/dL Hct (34.0-46.0) % MCV (80.0-100.0) fL MCH (25.0-35.0) pg MCHC (31.0-37.0) g/dL RDW (11.5-15.5) % Plt Count (150-450) k/uL MPV Neutrophils % % Lymphocytes % % Monocytes % % Eosinophils % % Basophils % % Neutrophils # (1.3-7.7) k/uL Lymphocytes # (1.0-4.8) k/uL Monocytes # (0-1.0) k/uL Eosinophils # (0-0.7) k/uL Basophils # (0-0.2) k/uL PT (9.0-12.0) sec INR (<1.2) APTT (22.0-30.0) sec D-Dimer (<0.60) mg/L FEU Sodium 136 L (137-145) mmol/L Potassium 4.5 (3.5-5.1) mmol/L Chloride 103 (98-107) mmol/L Carbon Dioxide 28 (22-30) mmol/L Anion Gap 5 mmol/L BUN 15 (7-17) mg/dL Creatinine 0.92 (0.52-1.04) mg/dL Est GFR (CKD-EPI)AfAm 79 (>60 ml/min/1.73 sqM) Est GFR (CKD-EPI)NonAf 68 (>60 ml/min/1.73 sqM) Glucose 112 H (74-99) mg/dL Calcium 8.6 (8.4-10.2) mg/dL Magnesium 1.8 (1.6-2.3) mg/dL Total Bilirubin 0.5 (0.2-1.3) mg/dL AST 32 (14-36) U/L ALT 32 (4-34) U/L Alkaline Phosphatase 77 (38-126) U/L Troponin I <0.012 (0.000-0.034) ng/mL Total Protein 6.4 (6.3-8.2) g/dL Albumin 4.0 (3.5-5.0) g/dL Urine Color Urine Appearance (Clear) Urine pH (5.0-8.0) Ur Specific [place] (1.001-1.035) Urine Protein (Negative) Urine Glucose (UA) (Negative) Urine Ketones (Negative) Urine Blood (Negative) Urine Nitrite (Negative) Urine Bilirubin (Negative) Urine Urobilinogen (<2.0) mg/dL Ur Leukocyte Esterase (Negative) Urine RBC (0-5) /hpf Urine WBC (0-5) /hpf Ur Squamous Epith Cells (0-4) /hpf Urine Mucus (None) /hpf Influenza Type A (PCR) Not Detected (Not Detectd) Influenza Type B (PCR) Not Detected (Not Detectd) RSV (PCR) Not Detected (Not Detectd) SARS-CoV-2 (PCR) Not Detected (Not Detectd) - EKG Data -: EKG Interpreted by Me EKG Comments: 12-lead Electrocardiogram Interpretation Note EKG was reviewed and interpreted by myself. 12-lead ECG performed at 0923 is interpreted by me as revealing normal sinus rhythm with left bundle-branch morphology which is chronic at a rate of 82 beats per minute. Left axis deviation. SD interval is 179 ms, QRS durations 137 ms, QTc is 427 ms.. There were no acute ST or T wave abnormalities to suggest myocardial ischemia or injury. Chronic T wave inversions in aVL, as well as left bundle-branch block morphology seen from prior EKGs R wave progression across the precordium was delayed. By my interpretation this EKG is non-diagnostic for acute ischemia. When compared with EKG from November 2017, no significant change. Disposition Clinical Impression: Dizzy Disposition: ADMITTED IP TO THIS HOSP Condition: Stable Time of Disposition: 11:10
[2022-08-31 09:40] LABS: Basophils # (A) 0.1 k/uL (0-0.2); Basophils % (A) 1 %; Eosinophils # (A) 0.3 k/uL (0-0.7); Eosinophils % (A) 4 %; HCT 44.6 % (34.0-46.0); Lymphocytes # (A) 1.4 k/uL (1.0-4.8); Lymphocytes % (A) 17 %; MCHC 33.7 g/dL (31.0-37.0); Mean Platelet Volume 7.9; Monocytes # (A) 0.4 k/uL (0-1.0); Monocytes % (A) 5 %; Neutrophils # (A) 5.8 k/uL (1.3-7.7); Neutrophils % (A) 71 %; Platelet Count 189 k/uL (150-450); RBC 5.01 m/uL (3.80-5.40); RDW 12.9 % (11.5-15.5); WBC 8.2 k/uL (3.8-10.6)
--- NOTE | 2022-08-31 09:46 | XR ---
EXAMINATION TYPE: XR chest 2V DATE OF EXAM: 08/31/2022 COMPARISON: NONE TECHNIQUE: PA and lateral views submitted. HISTORY: Shortness of breath FINDINGS: The lungs are clear and there is no pneumothorax, pleural effusion, or focal pneumonia. Heart size normal and no overt failure. Osseous structures are intact. IMPRESSION: 1. No acute process.
[2022-08-31 09:53] LABS: Calcium 8.6 mg/dL (8.4-10.2); INR 0.9 (<1.2); Magnesium 1.8 mg/dL (1.6-2.3); Partial Thromboplastin Time 23.9 sec (22.0-30.0); Potassium 4.5 mmol/L (3.5-5.1); Prothrombin Time 9.7 sec (9.0-12.0); Total Bilirubin 0.5 mg/dL (0.2-1.3); Total Protein 6.4 g/dL (6.3-8.2)
[2022-08-31 10:07] LABS: Appearance,Urine Clear (Clear); Bilirubin,Urine Negative (Negative); Blood,Urine Negative (Negative); Color,Urine Yellow; Glucose,Urine (UA) Negative (Negative); Ketones,Urine Negative (Negative); Leukocyte Esterase,Urine Large (Negative); Mucus,Urine Rare /hpf; Nitrite,Urine Negative (Negative); PH, Urine 5.5 (5.0-8.0); Protein,Urine Negative (Negative); RBC,Urine 2 /hpf (0-5); Specific Gravity,Urine 1.019 (1.001-1.035); Squamous Epithelial Cell,Urine 1 /hpf (0-4); Urobilinogen,Urine <2.0 mg/dL (<2.0); WBC,Urine 6 /hpf (0-5)
--- NOTE | 2022-08-31 10:27 | CT ---
EXAMINATION TYPE: CT brain wo con CT DLP: 1104.6 mGycm, Automated exposure control for dose reduction was used. DATE OF EXAM: 08/31/2022 10:21 AM COMPARISON: None CLINICAL INDICATION:Female, 62 years old with history of vertigo, new onset, dizziness since last nig ht TECHNIQUE: Brain: Axial CT images of the brain were obtained with coronal and sagittal reformats created and rev iewed. Contrast used: None. Oral contrast used: None. FINDINGS: Brain: Extra-axial spaces: No abnormal extra-axial fluid collections. Ventricular system: Within normal limits Cerebral parenchyma: No acute intraparenchymal hemorrhage or mass effect. The arshad-white junction is well differentiated. Cerebellum: Unremarkable. Mass effect: No evidence of midline shift. Intracranial vasculature: unremarkable Soft tissues: Normal. Calvarium/osseous structures: No depressed skull fracture. Paranasal sinuses and mastoid air cells: Mild scattered paranasal sinus disease. Visualized orbits: Orbital contents are intact. IMPRESSION: No acute intracranial process.
--- NOTE | 2022-08-31 10:42 | CT ---
EXAMINATION TYPE: CT angio head neck CT DLP: 391.7 mGycm, Automated exposure control for dose reduction was used. DATE OF EXAM: 08/31/2022 10:35 AM COMPARISON: CT head same day. CLINICAL INDICATION:Female, 62 years old with history of vertigo, new onset, dizziness since last nig ht TECHNIQUE: Axially acquired helical CT angiogram of the head and neck was obtained with contrast. Axi al images are supplemented with 3D reconstructions which [facility] NASCET criteria used. Contrast used:65 mL of Isovue 370 with IV Contrast, Oral contrast used: None. FINDINGS: CTA HEAD: No evidence of acute intracranial hemorrhage, mass effect, or midline shift. The ventricles, sulci, a nd cisterns are unremarkable. The visualized portions of the internal carotid arteries, middle cerebral arteries, anterior cerebral arteries, and posterior cerebral arteries are patent. Bilateral origins of the posterior cereb ral arteries. The basilar and vertebral arteries are patent. CTA NECK: Right Carotid System: The common carotid artery and external carotid artery are patent. The carotid bifurcation demonstrate s no evidence of hemodynamically significant stenosis. The remaining portions of the internal carotid artery demonstrate normal size without significant narrowing. Left Carotid System: The common carotid artery and external carotid artery are patent. The carotid bifurcation demonstrate s no evidence of hemodynamically significant stenosis. The remaining portions of the internal carotid artery demonstrate normal size without significant narrowing. Vertebral arteries are patent without evidence hemodynamically significant stenosis. There is a three-vessel aortic arch. The origins of the great vessels are patent. No evidence of hemo dynamically significant stenosis. Upper thorax: IMPRESSION: 1. No evidence of dissection of the cervical internal carotid arteries or vertebral arteries or any e vidence of significant stenosis at the carotid bifurcations. 2. No evidence of intracranial high-grade stenosis or intracranial aneurysm.
[2022-08-31] MEDS ORDERED: NALOXONE 0.4 MG/ML 1 ML VIAL IV PRN (11:19)
[2022-08-31] MEDS ORDERED: MECLIZINE 25 MG TAB PO PRN (11:21)
[2022-08-31] MEDS ORDERED: clonazePAM 0.5 MG TAB PO PRN (12:15)
--- NOTE | 2022-08-31 12:55 | P.HPIM ---
History of Present Illness Patient is a pleasant 8-year-old female came in because of vertigo room spinning around with the change in movement of the head which lasted for a few seconds. Patient denied any fullness in the ears denied any hearing problems tinnitus. Patient denied any fever chills patient denied any nasal congestion or sinusitis. Lanette Hallpike maneuver was negative for any horizontal nystagmus. CT angios the head did not show any significant abnormality. REVIEW OF SYSTEMS: CONSTITUTIONAL: No fever, no malaise, no fatigue. HEENT: No recent visual problems or hearing problems. Denied any sore throat. CARDIOVASCULAR: No chest pain, orthopnea, PND, no palpitations, no syncope. PULMONARY: No shortness of breath, no cough, no hemoptysis. GASTROINTESTINAL: No diarrhea, no nausea, no vomiting, no abdominal pain. NEUROLOGICAL: No headaches, no weakness, no numbness. HEMATOLOGICAL: Denies any bleeding or petechiae. GENITOURINARY: Denies any burning micturition, frequency, or urgency. MUSCULOSKELETAL/RHEUMATOLOGICAL: Denies any joint pain, swelling, or any muscle pain. ENDOCRINE: Denies any polyuria or polydipsia. The rest of the 14-point review of systems is negative. PHYSICAL EXAMINATION: GENERAL: The patient is alert and oriented x3, not in any acute distress. Well developed, well nourished. HEENT: Pupils are round and equally reacting to light. EOMI. No scleral icterus. No conjunctival pallor. Normocephalic, atraumatic. No pharyngeal erythema. No thyromegaly. CARDIOVASCULAR: S1 and S2 present. No murmurs, rubs, or gallops. PULMONARY: Chest is clear to auscultation, no wheezing or crackles. ABDOMEN: Soft, nontender, nondistended, normoactive bowel sounds. No palpable organomegaly. MUSCULOSKELETAL: No joint swelling or deformity. EXTREMITIES: No cyanosis, clubbing, or pedal edema. NEUROLOGICAL: Gross neurological examination did not reveal any focal deficits. Romberg sign is positive with eyes closed, no cervical or signs or weakness or ataxia SKIN: No rashes. Assessment and plan -Vertigo appears to be peripheral vertigo, CT negative for any CP angle tumor, patient is on meclizine. Patient appears to have benign positional vertigo probably can be discharged today. If patient can use to have symptoms may benefit from vestibular rehabilitation. -Hyperlipemia -History of SVT for which patient is on metoprolol -Hypothyroidism DVT prophylaxis: Ambulation Past Medical History Past Medical History: Hyperlipidemia, Supraventricular Tachycardia (SVT), Thyroid Disorder Additional Past Medical History / Comment(s): FACTOR V History of Any Multi-Drug Resistant Organisms: None Reported Past Surgical History: Adenoidectomy, Hysterectomy, Tonsillectomy Past Anesthesia/Blood Transfusion Reactions: No Reported Reaction Additional Past Anesthesia/Blood Transfusion Reaction / Comment(s): Mom PONV. Past Psychological History: Anxiety Smoking Status: Never smoker Past Alcohol Use History: Occasional Past Drug Use History: None Reported - Past Family History Mother Family Medical History: Cancer Additional Family Medical History / Comment(s): Oral cancer. Father Family Medical History: Pulmonary Embolus Additional Family Medical History / Comment(s): Factor 5. Medications and Allergies Home Medications Medication Instructions Recorded Confirmed Type FLUoxetine HCL [PROzac] 20 mg PO DAILY 09/15/14 08/31/22 History Mirtazapine [Remeron] 15 mg PO HS 09/15/14 08/31/22 History clonazePAM [KlonoPIN] 0.5 mg PO HS PRN 07/03/17 08/31/22 History Metoprolol Succinate (ER) [Toprol 25 mg PO DAILY 11/29/18 08/31/22 History XL] Pravastatin Sodium [Pravachol] 40 mg PO HS 11/29/18 08/31/22 History Levothyroxine Sodium [Levoxyl] 88 mcg PO DAILY 09/29/21 08/31/22 History Aspirin 81 mg PO DAILY 08/31/22 08/31/22 History Multivitamins, Thera [Multivitamin 1 tab PO DAILY 08/31/22 08/31/22 History (formulary)] Allergies Allergy/AdvReac Type Severity Reaction Status Date / Time Penicillins AdvReac Vomiting Verified 08/31/22 12:09 Physical Exam Vitals: Vital Signs Temp Pulse Resp BP BP BP BP 08/31/22 12:38 78 18 124/78 08/31/22 10:40 93 18 118/73 08/31/22 10:29 18 119/83 119/72 112/67 08/31/22 08:50 97.6 F 100 18 134/80 Pulse Ox 08/31/22 12:38 98 08/31/22 10:40 98 08/31/22 10:29 98 08/31/22 08:50 98 Intake and Output 08/30/22 08/31/22 08/31/22 22:59 06:59 14:59 Other: Weight 58.967 kg Results CBC & Chem 7: 08/31/22 09:22 08/31/22 09:22 Labs: Abnormal Lab Results - Last 24 Hours (Table) 08/31/22 08/31/22 Range/Units 09:22 09:22 Sodium 136 L (137-145) mmol/L Glucose 112 H (74-99) mg/dL Ur Leukocyte Esterase Large H (Negative) Urine WBC 6 H (0-5) /hpf Urine Mucus Rare H (None) /hpf
--- NOTE | 2022-08-31 13:01 | P.DS ---
Providers Date of admission: 08/31/22 11:19 Attending physician: Rafal Brito Consults: 08/31/22 11:06 Consult Physician Routine Consulting Provider: Jose Chu Consult Reason/Comments: persistent lightheadedness/vertigo symptoms Do you want consulting provider notified?: Yes Primary care physician: Suad Bullard [facility] Course: Please refer to my history of present illness for further details Patient Condition at Discharge: Stable Plan - Discharge Summary New Discharge Prescriptions: New Meclizine [Antivert] 25 mg PO TID PRN #20 tab PRN Reason: Vertigo Continue Mirtazapine [Remeron] 15 mg PO HS FLUoxetine HCL [PROzac] 20 mg PO DAILY clonazePAM [KlonoPIN] 0.5 mg PO HS PRN PRN Reason: Insomnia Pravastatin Sodium [Pravachol] 40 mg PO HS Metoprolol Succinate (ER) [Toprol XL] 25 mg PO DAILY Aspirin 81 mg PO DAILY Multivitamins, Thera [Multivitamin (formulary)] 1 tab PO DAILY Levothyroxine Sodium [Levoxyl] 88 mcg PO DAILY Discharge Medication List FLUoxetine HCL [PROzac] 20 mg PO DAILY 09/15/14 [History] Mirtazapine [Remeron] 15 mg PO HS 09/15/14 [History] clonazePAM [KlonoPIN] 0.5 mg PO HS PRN 07/03/17 [History] Metoprolol Succinate (ER) [Toprol XL] 25 mg PO DAILY 11/29/18 [History] Pravastatin Sodium [Pravachol] 40 mg PO HS 11/29/18 [History] Levothyroxine Sodium [Levoxyl] 88 mcg PO DAILY 09/29/21 [History] Aspirin 81 mg PO DAILY 08/31/22 [History] Meclizine [Antivert] 25 mg PO TID PRN #20 tab 08/31/22 [Rx] Multivitamins, Thera [Multivitamin (formulary)] 1 tab PO DAILY 08/31/22 [History] Follow up Appointment(s)/Referral(s): Suad Bullard MD [Primary Care Provider] - 3 Days Lacey Teran MD [REFERRING] - 1 Week Discharge Disposition: HOME SELF-CARE
[2022-08-31 13:56] VITALS: PULSE 73
--- NOTE | 2022-08-31 14:05 | P.CNNES ---
History of Present Illness Consult date: 08/31/22 Requesting physician: Frank Villatoro Reason for Consult: persistent lightheadedness/vertigo History of Present Illness: This is a year-old woman with history of supravetricular tachycardia, factor V Leiden hypothyroidism presented emergency department because of dizziness and feeling lightheadedness since yesterday night. She stated that the she recently came back from a trip from [place]. She was on acoustic ship for 7 days while in [place] and last day of Cruise ship was this past Monday. Since yesterday nigh t when she got out of bed she noticed that the she was feeling dizzy and she felt like she was spinning and a result she felt her balance was off but noticed only with movement. She denied any nausea any vomiting. Regarding any ringing in the ear was questionable. Denies any hearing loss. Denies any focal weakness, tingling, difficulty swallowing. Denies any visual disturbance. Denies any recent fever or head trauma. Unaware of any sick contacts. Denies any history of stroke or TIA in the past. Some other workup during his hospital visit consisted of: Initial temperature is 97.6 Fahrenheit orally. Orthostatic vitals is a supine blood pressures 112/67 sitting is 119/83 and standing is 119/72 I feel there is a drop off 10 from sitting to standing and diastolic. CBC with differential is unremarkable Initial serum glucose is 112 sodium is 136 but the rest of chemistry panel is unremarkable Urinalysis is the leukocyte esterase is a large and white blood cells 6 Influenza A/B, RSV and SARS-CoV2 are not detected. CT of the head is reported as no acute intracranial process. I attempted to review the CT but there is issues with the system. 2-D angiography of the head and neck was reported as no evidence of dissection of the cervical internal carotid arteries or vertebral arteries or any evidence of significant stenosis at the carotid bifurcation. No evidence of intracranial high-grade stenosis or intracranial aneurysm. EKG is reported as sinus rhythm. Possible left atrial enlargement. Left axis deviation. Left bundle branch block. Review of Systems Review of system: The 12 point system was reviewed and apparent positive and negative per HPI. Past Medical History Past Medical History: Hyperlipidemia, Supraventricular Tachycardia (SVT), Thyroid Disorder Additional Past Medical History / Comment(s): FACTOR V History of Any Multi-Drug Resistant Organisms: None Reported Past Surgical History: Adenoidectomy, Hysterectomy, Tonsillectomy Past Anesthesia/Blood Transfusion Reactions: No Reported Reaction Additional Past Anesthesia/Blood Transfusion Reaction / Comment(s): Mom PONV. Past Psychological History: Anxiety Smoking Status: Never smoker Past Alcohol Use History: Occasional Past Drug Use History: None Reported - Past Family History Mother Family Medical History: Cancer Additional Family Medical History / Comment(s): Oral cancer. Father Family Medical History: Pulmonary Embolus Additional Family Medical History / Comment(s): Factor 5. Medications and Allergies Home Medications Medication Instructions Recorded Confirmed Type FLUoxetine HCL [PROzac] 20 mg PO DAILY 09/15/14 08/31/22 History Mirtazapine [Remeron] 15 mg PO HS 09/15/14 08/31/22 History clonazePAM [KlonoPIN] 0.5 mg PO HS PRN 07/03/17 08/31/22 History Metoprolol Succinate (ER) [Toprol 25 mg PO DAILY 11/29/18 08/31/22 History XL] Pravastatin Sodium [Pravachol] 40 mg PO HS 11/29/18 08/31/22 History Levothyroxine Sodium [Levoxyl] 88 mcg PO DAILY 09/29/21 08/31/22 History Aspirin 81 mg PO DAILY 08/31/22 08/31/22 History Meclizine [Antivert] 25 mg PO TID PRN #20 tab 08/31/22 Rx Multivitamins, Thera [Multivitamin 1 tab PO DAILY 08/31/22 08/31/22 History (formulary)] Allergies Allergy/AdvReac Type Severity Reaction Status Date / Time Penicillins AdvReac Vomiting Verified 08/31/22 12:09 Physical Examination - Vital Signs Vital Signs: Vital Signs Temp Pulse Resp BP BP BP BP 08/31/22 12:38 78 18 124/78 08/31/22 10:40 93 18 118/73 08/31/22 10:29 18 119/83 119/72 112/67 08/31/22 08:50 97.6 F 100 18 134/80 Pulse Ox 08/31/22 12:38 98 08/31/22 10:40 98 08/31/22 10:29 98 08/31/22 08:50 98 Intake and Output 08/30/22 08/31/22 08/31/22 22:59 06:59 14:59 Other: Weight 58.967 kg GENERAL: The patient is lying in bed and is not in acute distress. CHEST: The heart rate is regular rate rhythm. No murmurs to auscultation. LUNG: Clear to auscultation bilaterally no wheezing noted throughout. Not labored breathing. ABDOMEN/GI: Bowel sounds present in all 4 quadrants. No tenderness to palpation throughout. NEUROLOGICAL: Higher mental function: The patient is awake, alert, oriented to self, place and time. Patient is following commands. No aphasia and no neglect. Cranial nerves: The pupils are round, equal and reactive to light and accommodation. Visual ng are full to confrontation throughout. Extraocular movement is intact no nystagmus is noted. Facial sensation is normal to touch throughout. The facial strength is normal throughout. Hearing is normal bilaterally to hand rub. Tongue is midline and moved [id number] without any difficulty. No dysarthria is noted. Shoulder shrug is normal bilaterally. Motor: Gait is minimal unsteadiness at rare but did not sway toward one side or other and did not require assistance walkning. The strength is 5 over 5 throughout. Normal tone and bulk. Cerebellum: Normal finger to nose heel to perez bilaterally. Sensation: Sensation is normal to touch throughout. Reflexes (right/left):2+ throughout. Plantars are mute bilaterally. Results - Laboratory Findings CBC and BMP: 08/31/22 09:22 08/31/22 09:22 Abnormal Lab Findings: Abnormal Labs 08/31/22 08/31/22 09:22 09:22 Sodium 136 L Glucose 112 H Ur Leukocyte Esterase Large H Urine WBC 6 H Urine Mucus Rare H Assessment and Plan Assessment: This is a 62-year-old woman with history of factor V Leiden, hypothyroidism who recently just returned from a trip from [place] and the she was on a cruise ship for 7 days (last part of her trip). Acute vertigo appears more peripheral. Cannot rule out central especially with factor V but feel unlikely central. History of factor V Leiden Superventricular tachycardia Hypothyroidism Plan: In the ED the patient received 1 L of normal saline as well as meclizine 25 mg once. Currently she is on meclizine 25 mg 1 tablet the 3 times a day as needed. Agents stated that she would like to get MRI of the brain as an outpatient rather than inpatient. She'll attempt to follow-up with her PCP within a week. patient was notified if has any worsening of her symptoms she'll come it immediately back to the emergency and then we'll pursue MRI of the brain to rule out any acute or subacute ischemia (peripheral circulation). Currently she is on aspirin 81 mg daily. I'll obtain a repeat orthostatic since I felt there is a drop in orthostatic from sitting to standing diastolic. If she does have positive orthostatic tachycardia be the cause of her vertigo. Consulted Physical therapy. I gave patient Mihir Maneuver exercise to do at home. We'll defer the rest of the medical management to primary team. Plan was discussed with the patient and her significant other was at bedside as well as primary team Thank you for the consultation UPDATE: Repeat orthostatic are negative. I assessed her walk and walked without any help and her gait was normal and not swaying. Patient stated she is doing much better and could not do that yesterday or earlier in morning today and her agreed. Time spent on care is 35 minutes (going over history, reviewing labs/imaging, going over plan). Time with Patient: Greater than 30
[2022-08-31 14:06] VITALS: BP 110/77; RESP 14; TEMP 98.2
[2022-08-31] MEDS ORDERED: PRAVASTATIN SODIUM 40 MG TAB PO SCH (21:00)
[2022-08-31] MEDS ORDERED: MIRTAZAPINE 15 MG TAB PO SCH (21:00)
[2022-09-01] MEDS ORDERED: LEVOTHYROXINE 88 MCG TAB PO SCH (06:30)
[2022-09-01] MEDS ORDERED: ASPIRIN 81 MG PO SCH (09:00)
[2022-09-01] MEDS ORDERED: FLUoxetine HCL 20 MG CAP PO SCH (09:00)
[2022-09-01] MEDS ORDERED: METOPROLOL SUCCINATE (ER) 25 MG TAB.ER.24H PO SCH (09:00)
== END 2022-08-31 14:53 | disposition home or self-care (01) ==
LOC: EC 08:49 → 6NMEDSUR 11:19
PROVIDERS: ADMIT Internal Medicine; ATTEND Internal Medicine
DX: R42 Dizziness and giddiness (principal); R00.0 Tachycardia, unspecified; I44.7 Left bundle-branch block, unspecified; E07.9 Disorder of thyroid, unspecified; Z20.822 Contact with and (suspected) exposure to COVID-19; D68.51 Activated protein C resistance; Z79.890 Hormone replacement therapy; Z79.899 Other long term (current) drug therapy; Z88.0 Allergy status to penicillin
CPT/HCPCS: 96360; 99285; 36415; 93005; 85379; 80053; 83735; 84484; 85025; 85610; 85730; 81001; 87636; 71046; 70496; 70450; 70498; G0378; Q9967

== ENCOUNTER → 2023-02-02 | Outpatient (CLI) | payer BC ==
--- NOTE | 2023-02-02 09:22 | MM ---
Reason for Exam: Screening (asymptomatic). Last screening mammogram was performed 12 month(s) ago. Patient History: Menarche at age 14. First Full-Term at age 27. Hysterectomy at age 46. Postmenopausal. Hormonal Contraceptives, from age 22 until age 37. 12/18/2018, Benign Core Biopsy on the left side. Risk Values: Karin 5 year model risk: 1.9%. NCI Lifetime model risk: 9.5%. Prior Study Comparison: 01/24/2020 Bilateral Screening Mammogram, [facility]. 01/29/2021 Bilateral Screening Mammogram, [facility]. 02/01/2022 Bilateral MG 3D screening mammo w/cad, [facility]. Tissue Density: The breast tissue is heterogeneously dense. This may lower the sensitivity of mammography. Findings: Analyzed By CAD. Left breast biopsy clip. There is no suspicious group of microcalcifications or new suspicious mass in either breast. Overall Assessment: Negative, BI-RAD 1 Management: Screening Mammogram of both breasts in [address] [facility] will attempt to contact patient to return for supplemental views and ultrasound if indicated. Patient should continue monthly self-breast exams. A clinical breast exam by your physician is recommended on an annual basis. This exam should not preclude additional follow-up of suspicious palpable abnormalities. Note on Karin scores and lifetime risk: 1. A Karin score greater than 3% is considered moderate risk. If this is the case, consider specialist referral to assess eligibility for a risk reducing agent. 2. If overall lifetime risk for the development of breast cancer is 20% or higher, the patient may qualify for future screening with alternating mammogram and breast MRI. Electronically signed and approved by: Avni Recinos DO
== END | disposition home or self-care (01) ==
LOC: RADMAMWWP 07:07
PROVIDERS: ATTEND Family Medicine
DX: Z12.31 Encounter for screening mammogram for malignant neoplasm of breast (principal); Z78.0 Asymptomatic menopausal state
CPT/HCPCS: 77063; 77067

== ENCOUNTER → 2024-02-05 | Outpatient (CLI) | payer BC ==
--- NOTE | 2024-02-09 10:53 | MM ---
Reason for Exam: Screening (asymptomatic). Last screening mammogram was performed 12 month(s) ago. Patient History: Menarche at age 14. First Full-Term at age 27. Hysterectomy at age 46. Postmenopausal. Hormonal Contraceptives, from age 22 until age 37. 12/18/2018, Benign Core Biopsy on the left side. Risk Values: Karin 5 year model risk: 1.9%. NCI Lifetime model risk: 9.3%. Prior Study Comparison: 01/29/2021 Bilateral Screening Mammogram, [facility]. 02/01/2022 Bilateral MG 3D screening mammo w/cad, [facility]. 02/02/2023 Bilateral MG 3D screening mammo w/cad, [facility]. Tissue Density: The breasts are almost entirely fatty. Findings: Analyzed By CAD. Left breast biopsy clip. Right breast: There is no suspicious group of microcalcifications or new suspicious mass. Left breast: There is no suspicious group of microcalcifications or new suspicious mass. Overall Assessment: Negative, BI-RAD 1 Management: Screening Mammogram of both breasts in [address] [facility] will attempt to contact patient to return for supplemental views and ultrasound if indicated. Patient should continue monthly self-breast exams. A clinical breast exam by your physician is recommended on an annual basis. This exam should not preclude additional follow-up of suspicious palpable abnormalities. Note on Karin scores and lifetime risk: 1. A Karin score greater than 3% is considered moderate risk. If this is the case, consider specialist referral to assess eligibility for a risk reducing agent. 2. If overall lifetime risk for the development of breast cancer is 20% or higher, the patient may qualify for future screening with alternating mammogram and breast MRI. Electronically signed and approved by: Avni Recinos DO
== END | disposition home or self-care (01) ==
LOC: RADMAMWWP 07:53
PROVIDERS: ATTEND Family Medicine
DX: Z12.31 Encounter for screening mammogram for malignant neoplasm of breast (principal); Z78.0 Asymptomatic menopausal state
CPT/HCPCS: 77063; 77067

== ENCOUNTER → 2025-02-05 | Outpatient (CLI) | payer BC ==
--- NOTE | 2025-02-05 09:10 | BD ---
EXAMINATION TYPE: Axial Bone Density DATE OF EXAM: 02/05/2025 CLINICAL HISTORY: 64 years old Female. ICD-10 CODE: Z12.31 SCREEN MAMMO M85.88 OTH DISRD OF BONE DEN SI , Additional History: Height: 62 Weight: 129 FRAX RISK QUESTIONS: Family History (Parent hip fracture): no History of Fracture in Adulthood: yes Secondary Osteoporosis: no RISK FACTORS HISTORY OF: Surgery to Spine/Hip(right/left)/Wrist (right/left): no MEDICATIONS: Thyroid Medications: yes Which medication: Synthroid How Lon+ years Osteoporosis Medications: no EXAM MEASUREMENTS: Bone mineral densitometry was performed using the [employer] System. Bone mineral density as measured about the Lumbar spine is: ----- L1-L4(G/cm2): 1.009 T Score Values are as follows: ----- L1: -1.6 ----- L2: -1.7 ----- L3: -1.3 ----- L4: -1.3 ----- L1-L4: -1.4 Z Score Values are as follows: ----- L1: 0.0 ----- L2: -0.1 ----- L3: 0.3 ----- L4: 0.3 ----- L1-L4: 0.2 Bone mineral density has: Increased 1.7% since study of: 07-15-2021 Bone mineral density about the R hip (g/cm2): 0.836 Bone mineral density about the L hip (g/cm2): 0.863 T Score values are as follows: -----R Neck: -1.8 -----L Neck: -1.5 -----R Total: -1.4 -----L Total: -1.1 Z Score values are as follows: -----R Neck: -0.3 -----L Neck: 0.0 -----R Total: -0.2 -----L Total: 0.1 Bone mineral density has: Decreased -4..0% since study of: 07-15-2021 FRAX%s: The graph provided illustrates a 15.5% chance for a major osteoporotic fx and a 1.9% chance f or the hips probability for fx in 10 years time. IMPRESSION: Osteopenia (T Score between -2.5 and -1). There is slightly increased risk of fracture and the patient may be considered for treatment. Re-Screen 2-5 years. NOTE: T-SCORE=SD OF THE YOUNG ADULT MEAN. [facility], , 02/05/2025 9:07 AM
--- NOTE | 2025-02-05 10:20 | MM ---
Reason for Exam: Screening (asymptomatic). Last screening mammogram was performed 12 month(s) ago. Patient History: Menarche at age 14. First Full-Term at age 27. Hysterectomy at age 46. Postmenopausal. Hormonal Contraceptives, from age 22 until age 37. 12/18/2018, Benign Core Biopsy on the left side. Risk Values: Karin 5 year model risk: 2.0%. NCI Lifetime model risk: 9.0%. Prior Study Comparison: 02/01/2022 Bilateral MG 3D screening mammo w/cad, [facility]. 02/02/2023 Bilateral MG 3D screening mammo w/cad, [facility]. 02/05/2024 Bilateral MG 3D screening mammo w/cad, [facility]. Tissue Density: There are scattered areas of fibroglandular density. Findings: Analyzed By CAD. Mammotome biopsy clip in the left breast is redemonstrated. Benign-appearing lymph nodes in the left axilla are redemonstrated. There is no suspicious group of microcalcifications or new suspicious mass in either breast. Overall Assessment: Benign, BI-RAD 2 Management: Screening Mammogram of both breasts in 1 year. . Patient should continue monthly self-breast exams. A clinical breast exam by your physician is recommended on an annual basis. This exam should not preclude additional follow-up of suspicious palpable abnormalities. Note on Karin scores and lifetime risk: 1. A Karin score greater than 3% is considered moderate risk. If this is the case, consider specialist referral to assess eligibility for a risk reducing agent. 2. If overall lifetime risk for the development of breast cancer is 20% or higher, the patient may qualify for future screening with alternating mammogram and breast MRI. [facility], , 02/05/2025 10:17 AM. Electronically signed and approved by: Berlin Dietz M.D.
== END | disposition home or self-care (01) ==
LOC: RADMAMWWP 07:51
PROVIDERS: ATTEND Family Medicine
DX: Z12.31 Encounter for screening mammogram for malignant neoplasm of breast (principal); R92.323 Mammographic fibroglandular density, bilateral breasts; M85.89 Other specified disorders of bone density and structure, multiple sites; Z78.0 Asymptomatic menopausal state; Z92.0 Personal history of contraception
CPT/HCPCS: 77063; 77067; 77080